=== PATIENT | male | born 2000 | race Caucasian/White ===

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

== ENCOUNTER → 2022-07-08 | Outpatient (CLI) | payer MEDICAID, SELFPAY ==
--- NOTE | 2022-07-08 15:37 | MRI_ITS ---
EXAM: MR RIGHT LOWER EXTREMITY WITHOUT INTRAVENOUS CONTRAST, KNEE CLINICAL INDICATION: history of patellar subluxations TECHNIQUE: Multiplanar and multisequence MR images of the right knee without intravenous contrast. This report was created using mobile melting [employer] report [employer] technology. COMPARISON: X-ray 06/08/2022. FINDINGS: BONES/JOINTS: Patellar marrow edema. Marrow signal is otherwise normal. No fracture or osteonecrosis. No synovial hypertrophy. No intra-articular body. EXTENSOR MECHANISM: Unremarkable. MEDIAL MENISCUS: Unremarkable. LATERAL MENISCUS: Unremarkable. MEDIAL CAPSULE/SUPPORTING STRUCTURES: Unremarkable. Intact. LATERAL CAPSULE/SUPPORTING STRUCTURES: Intact. ANTERIOR CRUCIATE LIGAMENT: Unremarkable. Intact. POSTERIOR CRUCIATE LIGAMENT: Unremarkable. Intact. MUSCLES: Unremarkable. CARTILAGE: Unremarkable. Intact. FLUID: Trace joint effusion. OTHER SOFT TISSUES: No popliteal cyst. MRI/Lower Ext Joint Only (Routine) IMPRESSION: 1. Patellar bone contusion consistent with history of subluxations. 2. Trace joint effusion. Electronically Signed: Kortney Brady MD at 17:45 EST Reading Location ID and State: [id number] / Tel , Service support ,
== END | disposition home or self-care (01) ==
LOC: MRI 15:34
PROVIDERS: PCP Pediatrics
DX: S83.011D Lateral subluxation of right patella, subsequent encounter (principal)
CPT/HCPCS: 73721

== ENCOUNTER 2022-08-03 07:43 | Day surgery (SDC) | payer MEDICAID, SELFPAY ==
[2022-08-03] VITALS (8 sets, daily range): BP systolic 113–136; BP diastolic 60–78; PULSE 60–80; RESP 15–18; TEMP 36.6–37.1; O2SAT 80–100; BMI 22.9
[2022-08-03] MEDS: Lactated Ringers 1,000 ML 15 ML IV (08:15)
--- NOTE | 2022-08-03 09:06 | HP.PCM_ITS ---
HPI - General HPI Narrative PAULINE BOWSER, is a 21 M who presents for right knee arthroscopy, medial patellar femoral ligament reconstruction with allograft tissue. Patient understands wishes to proceed. Right knee marked. Explained the surgery pros and cons risks and benefits as well as postoperative recovery. Patient wishes to go a head with femoral nerve block we will plan to put the patient on crutches partial weightbearing only with a hinged knee brace unlocked 0 to 90 degrees and follow-up in the office in 2 days postoperatively. Postop narcotic counseling performed as well on risks of that. He understands here with his mom wishes to proceed. No further questions or concerns. No changes to history and physical exam. MR#: [id number] Acct: [id number] Name:PAULINE GOLD Rep #: [id number] : 2000 ? ? Provider: Dr. Michael Rogers MD Age/Sex:? 21/M ? ? Location: [facility] [place].[facility] Status: Signed Intake Intake Visit Reasons:?RIGHT KNEE Chief Complaint: MRI review Is patient in pain?: Yes Allergies No Known Allergies Allergy (Verified 07/15/22 13:49) Medications NK? 06/08/22 [History Confirmed 07/15/22] PFSH Medical History? 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 History of wisdom tooth extraction Social History? Smoking Status:? Never smoker alcohol intake:? never what type of physical activity do you participate in:? other HPI RIGHT KNEE Details: Parts of this documentation were recorded by a scribe, this documentation accurately reflects the service provided and the decisions made by me, Dr. Michael Rogers MD 07/15/22 1267. PAULINE BOWSER is a 21 year old M here today for? right knee PF instability. Mmore than 3 subluxations. first time at 17 playing soccer. Always goes out laterally and then comes back in. Never got stuck or went out and never had to have a manual reduction, mostly soccer. Up to 15 times. Tried the brace, did PT twice, tape. KT tape . Still playing indoor soccer on a Monday. IN school and work in [place]. 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 Pain medially in the knee, flared up, worse with standing. No grinding. per Sylvia Fuller ?21 year old M here today evaluation of chronic right knee pain, referred by PCP for a history of right patellar subluxations. He states that he has pretty constant aching over the medial knee. On an average day his pain is a 4/10. However, sometimes it can be very sharp with certain movements and feel like his knee is going to give out. Last patellar subluxation he think was about 3 months ago playing soccer. He states his initial subluxation was in 01/2017. States they have always reduced spontaneously. His worst one was just under a year ago when he was playing soccer. Denies any other injuries to right knee or right lower extremity besides subluxations. Denies any prior surgeries to right lower extremity. He has done 2 round of PT one back in 2018 and most recently in August of 2021. He has continued with a HEP and continues to have pain with daily activities like walking to class and more intense things like playing soccer. He states he gets swelling off and on. He has iced, taped, used a J-brace and taken NSAIDs as needed with minimal relief. At this time he would like an MRI to further evaluate. Ortho Exam General General: Yes no acute distress Neurologic: Yes alert and Yes oriented x3 Psychologic: Yes reasonable and appropriate Right Knee Skin/Wound: No erythema, No ecchymosis and No swelling Contralateral Normal: Yes Knee ROM: Yes ROM-Flexion 0-140 Examination: No Med jt line tenderness, No Lat jt line tenderness, No TTP inf pole patella, No Crepitus, No Pain with flexion, No Pain with extention, No James's Test, No TTP Patellar tendon, No TTP Tibial tubercle, No TTP Pes Anserine and No Illiotibial band tenderness Stability: NML: Anterior Drawer, NML: Sheba, NML: Posterior Drawer, NML: Valgus 0, NML: Valgus 30 and NML: Varus 0 Popliteal Adenopathy: No Patella Translation: 3 Apprehension with Lateral Translation: Yes Patellar Tilt Normal: Yes Patella Grind: No KNEE: ?mild TTP MPFL. mild Apprehension with lateral translation. mild pos j sign. lateral translation 3, 2 medial. no crepitus. normal gait, normal alignment, Able to plantarflex and dorsiflex. Soft compartments. Left Knee Patella Translation: 3 Supplemental Info MR#:? [id number] Acct: [id number] Name:? PAULINE BOWSER Rep #: [id number] :?? 2000 M 21 ? From:? ? Rhys Smith MD PCP: Dr. Aldo Weathers MD ? Status: DEP AMB Study: Knee 4 or More Views ? Date of Exam: 06/08/22 Exam# [id number] ? Ordering Dr:? Sylvia Jules STUDY: ? X-RAY - RIGHT KNEE REASON FOR EXAM: ? Male, 21 years old.? Pain. TECHNIQUE: ? 4 view(s) of the knee. COMPARISON: ? None. FINDINGS: Normal visualized distal femur.? Normal visualized proximal tibia and fibula.? Normal proximal tibiofibular articulation. Normal medial femorotibial compartment.? Normal lateral femorotibial compartment.? Normal patellofemoral articulation. The soft tissue structures are unremarkable. RAD/Knee 4 or More Views IMPRESSION: Normal x-ray examination of the knee. ? Electronically Signed: Rhys Smith MD at 15:47 EST , ? MR#:? [id number] Acct: [id number] Name:? PAULINE BOWSER Rep #: [id number] :?? 2000 M 21 ? From:? ? Kortney Brady MD PCP: Dr. Aldo Weathers MD ? Status: REG CLI Study: Lower Ext Joint Only (Routine) ? Date of Exam: 07/08/22 Exam# [id number] ? Ordering Dr:? Sylvia Jules EXAM:? MR RIGHT LOWER EXTREMITY WITHOUT INTRAVENOUS CONTRAST, KNEE CLINICAL INDICATION:? history of patellar subluxations TECHNIQUE:? Multiplanar and multisequence MR images of the right knee without intravenous contrast.? This report was created using [employer] report generation technology. COMPARISON:? X-ray 06/08/2022. FINDINGS: BONES/JOINTS:? Patellar marrow edema.? Marrow signal is otherwise normal. No fracture or osteonecrosis.? No synovial hypertrophy.? No intra-articular body. EXTENSOR MECHANISM:? Unremarkable. MEDIAL MENISCUS:? Unremarkable. LATERAL MENISCUS:? Unremarkable. MEDIAL CAPSULE/SUPPORTING STRUCTURES:? Unremarkable.? Intact. LATERAL CAPSULE/SUPPORTING STRUCTURES: Intact. ANTERIOR CRUCIATE LIGAMENT:? Unremarkable.? Intact. POSTERIOR CRUCIATE LIGAMENT:? Unremarkable.? Intact. MUSCLES:? Unremarkable. CARTILAGE:? Unremarkable.? Intact. FLUID:? Trace joint effusion. OTHER SOFT TISSUES: ? No popliteal cyst. MRI/Lower Ext Joint Only (Routine) IMPRESSION: ? 1.? Patellar bone contusion consistent with history of subluxations. ? 2.? Trace joint effusion. ? Electronically Signed: Kortney Brady MD at 17:45 EST Reading Location ID and State: [id number] / Tel , Service support? , agree with xr and MRI. insall salvati 1 no damaso / baja. TT TG about 11mm. Coding Level of Care Code Off vis,est,level 4 Diagnoses Instability of right patellofemoral joint? M25.361 Assessment and Plan Assessment and Plan (1) Instability of right patellofemoral joint: ?Status:?Acute ?Plan: 21-year-old male with patellofemoral instability on the right knee.? Normal alignment.? No patella alto or [place].? No obvious cartilage lesions or other secondary problems.? Normal alignment and normal TT-TG ratio.? He has tried extensive conservative management.? Surgery for this would involve reconstruction of the MPFL.? We went over the pros and cons risks and benefits as well as recovery associated with this as well as I perform this with allograft tissue.? He understands wishes to proceed and signed consent for surgery.? Booked the procedure for right knee arthroscopy, reconstruction medial patellofemoral ligament with allograft Pros and cons risks and benefits were discussed with the patient including but not limited to infection, pain, stiffness, bleeding, damage to surrounding structures, neurovascular injury, recurrence or retear, failure or wear of hardware or fixation, instability, fracture, deep vein thrombosis and pulmonary embolism, anesthetic risks, , patient dissatisfaction, anterior knee pain, graft rupture, hardware failure or irritation, osteoarthritis, need for further surgery and other risks.? Patient understood and wished to proceed with surgery, and signed the informed consent documentation. [facility] Medical History (Updated 07/27/22 @ 13:45 by Gena Cintron) Allergic dermatitis History of edema History of pain when walking Instability of right patellofemoral joint Non-smoker Wears contact lenses Home Medications NK 06/08/22 [History Last Taken Unknown] Allergy/AdvReac Type Severity Reaction Status Date / Time No Known Allergies Allergy Verified 08/03/22 08:14 Surgical History History of wisdom tooth extraction Social History Smoking Status: Never smoker alcohol intake: never what type of physical activity do you participate in: other Vital Signs Vital Signs Vital Signs: 08/03/22 08:15 08/03/22 08:15 Temperature 98 F Temperature Source Temporal Pulse Rate 72 Respiratory Rate 18 Respiratory Pattern Normal Blood Pressure 113/68 Blood Pressure Mean 83 Blood Pressure Source Monitor Blood Pressure Position Semi-Fowlers Blood Pressure Location Right Arm Pulse Ox 100 Oxygen Delivery Method Room Air Weight Weight: 160 lb Body Mass Index (BMI) 22.9
[2022-08-03] MEDS: Cefazolin 2 GM in 0.9% Normal Saline 100 ML IV (09:24)
--- NOTE | 2022-08-03 09:40 | RAD_ITS ---
STUDY: X-RAY - RIGHT KNEE REASON FOR EXAM: Male, 21 years old. Right knee arthroscopy. TECHNIQUE: 2 view(s) of the knee. COMPARISON: None. FINDINGS: Intraoperative imaging provided for medial patellofemoral ligament allograft. RAD/Knee 1 or 2 Views IMPRESSION: Intraoperative imaging provided for medial patellofemoral ligament allograft. Electronically Signed: Rhys Smith MD at 12:00 EDT ,
[2022-08-03] MEDS: Epinephrine (1 mg/ml) 1 MG/ML VIAL (10:39)
--- NOTE | 2022-08-03 11:23 | OP.PCM_ITS ---
Problems Associated Problem List Diagnoses (1) Instability of right patellofemoral joint: Report of Operation Date of Procedure: 08/03/22 Pre-Operative Diagnosis: Right knee patellofemoral instability Post-Operative Diagnosis: Same Surgery/Procedure Performed:: Right knee arthroscopy, debridement, reconstruction medial patellofemoral ligament with allograft tissue Surgeon: Michael Rogers Type of Anesthesia: Block,Regional and General Anesthesiologist: Dorian Rogers Estimated Blood Loss (mL): 30 Description of Procedure: Patient brought the operating room theater.? Placed supine on the operating room table.? General anesthesia induced 2 g IV Ancef given prior to the start of the procedure.? Stress positioner to the patient's right side.? Tourniquet applied to the thigh appropriately padded.? All bony prominences padded.? SCD on the nonoperative leg.? Bump under the hip. Lower extremity prepped and draped in the chlorhexidine-based prep solution allowing over 3 minutes drying time prior to draping.? Preoperative timeout performed to confirm the site patient and the surgery. Leg elevated and tourniquet inflated to 250 mmHg.? Began by making standard anterolateral and anteromedial arthroscopy portals.? Examined the full intra- articular extent of the knee.? Mild fraying far medial corner of patella, no full thickness cartilage defect, debrided to stable margins. Otherwise the trochlea appeared normal and the cartilage on the m/l compartments also appeared normal.? Gutters were entered no loose bodies.? Medial and lateral meniscus was normal as was the ACL.? Ligamentum mucosum debrided and removed.? Arthroscopy portion of the case terminated pictures taken and saved to the system. With the knee in 30 degrees of flexion and made longitudinally based incision over the superomedial aspect of patella.? Dissection down through skin and subcutaneous tissue to meticulous hemostasis I incised on the medial retinaculum identified the medial border of the patella at the superior and inferior aspect of that.? I placed the superior guide guidewire in the superior one third of the patella.? The distal anchor drill pin I placed parrallel distal to this at the middle of the patella.? I overdrilled these with the Arthrex 3.5 mm reamer.? I reamed to a depth of approximately 20 mm, to the laser line.? Then chose a gracilis graft approximately 24 cm in length 4 mm in diameter.? I whipstitched each stand using fiber tape Arthrex for a length of about 1 inch on either end.? I then passed the superior sutures through the eyelet of the anchor, mallet this into place at the superior drill hole and secured it.? This had good purchase in the bone.? I then slightly lengthen the button loop construct of the tight rope implant and passed the graft through that.? I then inserted the distal most anchor in the same fashion to create a U construct. Next I turned my attention to the distal femur.? I used the included guide to identify schottles point. 1 mm anterior to the posterior cortex extension line, 2.5 mm distal to the posterior articular border of the medial femoral condyle, and proximal to the level of the posterior point of Blumensaat?s line. Raymond the 'saddle' between ME and AT. ? Passive spade tipped drill bit at this point aiming slightly proximal and anterior.? The length of the tunnel was 8 cm.? I penetrated the lateral cortex out through the skin.? I then tunneled the graft underneath the vastus medialis muscle.?Between layers 2 and 3. I then used shuttling techniques to passed the button onto the far cortex of the femur flipped the button and deliver the tendon into the tunnel.? This achieved good fill of the tunnel.? Graft was tensioned at 30 degrees the patellofemoral joint not over constrained with normal tension on the graft.?Tighter in extension than flexion, full ROM of the knee, patella seated in trochlea. I took intraoperative fluoroscopy throughout to identify each point and saved the final pictures onto the system. Wound thoroughly irrigated with normal saline.? I closed the medial patellar retinaculum with the fiber tape sutures from the anchors and cut the suture short.?All sutures cut short. Subcutaneous tissue closed with 2-0 Vicryl sutures and Skin with 3-0 Monocryl.? Wound cleaned with wet and dry dressing followed by Steri-Strips Adaptic 4 x 4 gauze abdominal pad dressings and sterilely 6 inch Ad bandage with a hinged knee brace placed on the patient in full extension.? Patient woken up from the general anesthetic transferred off the operating room table taken to postanesthetic care unit in stable condition.? All sponge needle instrument counts were correct no complications.? Plan for the patient partial weightbearing on crutches for the first 2 weeks brace unlocked 0 to 90 degrees week 0-6. Grafts/Implants Used: arthex 3.5mm biocomposite swivelock anchors x2 and ACL button for femur Complications none Admit VTE Documentation VTE Present on Admission: No VTE Mechan Device Prophylaxis: SCD's Reason prophylaxis not ordered:: Treatment Not Indicated Procedures Musculoskeletal 20xxx-29xxx: Other Procedure See Report
--- NOTE | 2022-08-03 11:30 | DCINST_ITS ---
Discharge Instructions Diet Discharge Diet: No restrictions Activity Discharge Activity: Use Crutches Ice area for (Minutes): 10 Weight Bearing Status: Toe touch weight bearing Dressing / Incision Call your doctor if your incision/area has: Continuous Slow Oozing, Sudden Increased Bleeding, Increased Pain/ Swelling, Increased Redness, Foul Smelling Discharge and Swelling at the incision site Change Dressing in: leave in place till F/U Follow Up Care Please Follow Up With: Michael Rogers MD When: 2 days Test Results: Test results from this visit will be discussed in further detail at your follow- up appointment, if applicable. Discharge Plan Admission Attending Provider: Michael Rogers Primary Care Provider: Aldo Weathers Discharge Orders/Prescriptions Prescriptions: New oxycodone-acetaminophen [Percocet] 5-325 mg tablet 1 tab PO Q6H MDD 6 PRN (Reason: pain) 5 Days Qty: 20 0RF Referrals / Follow Up: Aldo Weathers MD [Primary Care Provider] - Michael Rogers MD [Med Staff - Active Staff] - Disposition Disposition (needs filled in before D/C Order can be placed): Home, Self Care
== END 2022-08-03 13:09 | disposition home or self-care (01) ==
LOC: SDC 07:43 → AC 07:44
PROVIDERS: PCP Pediatrics; Referring Provider Orthopaedic Surgery Sports Medicine; Visit Provider Orthopaedic Surgery Sports Medicine
PROC: (CPT 27427; principal; 2022-08-03 08:50)
DX: M25.361 Other instability, right knee (principal); X58.XXXA Exposure to other specified factors, initial encounter
CPT/HCPCS: 27422; 01400; 73560; 76000; C1713; J7120; J2405

== ENCOUNTER 2022-11-24 16:00 | Outpatient (RCR) | payer MEDICAID, SELFPAY ==
--- NOTE | 2022-08-22 14:23 | HP.PTEVAL_ITS ---
Patient's Visit Information PAULINE BOWSER is a 21 year old M referred to Physical Therapy by Dr. Michael Rogers MD with a diagnosis of OTHER INSTABILITY ,RIGHT KNEE MPFL RECONSTRUCTION. Date of Evaluation: 08/22/22 Physical Therapist: Az Landin, PT, Cert MDT, OCS - Visit Plan Frequency: 2x /Week Duration: 12weeks Plan: s/p right knee arthroscopy ,debridement ,reconstruction MPFL with allograft 08/03/22. KNEE BRACE ON WITH GAIT. 0-90 Degrees for 6weeks then progress as tolerated. SEE PROTOCAL FOR MPFL RECONSTRUCTION. PT INTERVETIONS SEE PROTOCAL FOR PROGRESSION ,ROM 0-90 DEGREES FOR 6WEEKS ,PROGRESS TO GRADUAL STRENGTHNEING QUADS/HAMSTRINGS HIP ,PROPRIOCEPTION ,NMES TO IMPROVE QUAD ,VASO AND CP - Subjective This 21 y/o male presents to physical therapy with S/P right knee arthroscopy ,debridement reconstruction MPFL with allograft on 08/03/22 at [facility] done by DR Rogers. Patient was PWB RLE for weeks with brace looked using crutches . Patient seen 08/05 then RTD 08/19 and start PT wean crutches use as tolerated and unlock brace 0-6 weeks 90 degrees then gradually increase with ROM as tolerated after 6weeks. Patient subluxation patella in HS sophomore and ~ 20 times over years subluxation including college thus pain persisted and edema ache thus underwent. Seen DR had MRI MPL injury. Patient post surgery had pain post thus ice and had Percocet. Patient nerve block . Patient conts to have edema and pain. Patient pain affects sleep ache. Patient is walking with brace unlocked 0-90 degrees. Patient has some paresthesia. Patient ahs limitaions with functional activities and ADLS and unable to RTS. Patient plans to college at [employer]. SOCIAL: College student. VOCATION: [employer]. - Pain Right Knee Pain Intensity (Out of 10): 4 Pain Intensity Range: 10 - Objective POSTURE: WFL. GAIT: ambulates with brace on with slight decrease stance time. SKIN: incision well approximate. EDEMA: joint line 38 cm. QUADS SET: poor. OBSERVATION: Atrophied quad. AROM: supine knee flexion 0-90 degrees. MMT: hip 3+/5 ,quads/hams NT. FLEXABLITY: hamstrings mild tight - Balance/Special Test Scores Lower Extremity Functional Score: 22 - Goals Goal 1:: Patient to be I with Protocol for MPFL . Goal Time Frame: 8-12 Weeks Goal 2:: Patient to demonstrate 75% improvement with function and activity Goal Time Frame: 8-12 Weeks Goal 3:: Patient improve AROM knee flexion 0-135 degrees to improve gait and stairs Goal Time Frame: 8-12 Weeks Goal 4:: Patient improve peak force quads/hams by 20-30 to improve gait Goal Time Frame: 8-12 Weeks Goal 5:: Patient to normalize gait with good proprioception to good Goal Time Frame: 8-12 Weeks Goal 6:: Patient to improve LFES score by 15-20 points to improve QOL and function Goal Time Frame: 6-8 Weeks - Rehabilitation Potential Physical Therapy Diagnosis: This patient underwent s/p right knee arthroscopy ,debridement ,reconstruction MPFL with allograft 08/03/22 with some pain ,decrease ROM ,weakness quads/hams ,atrophy ,decrease ROM impairs walking and function thus benefit from skilled PT Rehabilitation Potential: Good - Anticipated Interventions Patient/Client Instruction: Educate patient on: Condition, Plan of Care For the Purpose of:: To decrease pain, To increase ROM, To improve muscle performance and motor function, To increase tolerance to activity/condition/position, To improve performance and independence with ADL's, To improve ability of physical actions for home/community/work/leisure, To improve gait and locomotor functions, To improve health of tissue, To decrease soft tissue restriction, To increase flexibility/ROM, To improve endurance, To improve balance Therapeutic Exercise to Include: Strength training, Endurance training, Balance training, Agility training, Gait and locomotor training, Passive ROM, Active ROM Comment: SEE PROTOCAL FOR PROGRESSION For the Purpose of:: To decrease pain, To increase ROM, To improve muscle performance and motor function, To increase tolerance to activity/condition/position, To improve ability of physical actions for home/community/work/leisure, To improve gait and locomotor functions, To improve health of tissue, To decrease soft tissue restriction, To increase flexibility/ROM, To improve endurance, To improve balance Functional electric stimulation: Yes Cryotherapy (ice pack, ice massage): Yes Vasopneumatic device: Yes For the Purpose of:: To decrease pain, To increase ROM, To improve muscle performance and motor function, To increase tolerance to activity/condition/position, To improve ability of physical actions for home/community/work/leisure, To improve health of tissue, To decrease soft tissue restriction, To increase flexibility/ROM, To improve endurance, To improve balance Thank you for the opportunity to evaluate your patient. For Medicare and Medicare HMO plans, please review the plan of care and approve it. It will need to be FAXED BACK to us at [phone] for Medicare purposes. For Medicare only, by signing this I certify the plan of care. Please let me know if there are questions or concerns regarding this plan of care. Physician Signature: Date:
== END 2022-11-24 19:00 | disposition home or self-care (01) ==
LOC: PT 16:00
PROVIDERS: PCP Pediatrics; Referring Provider Orthopaedic Surgery Sports Medicine; Visit Provider Orthopaedic Surgery Sports Medicine
DX: M25.361 Other instability, right knee (principal)
CPT/HCPCS: 97110; 97162; 97530

== ENCOUNTER 2023-06-11 15:16 | Emergency (ER) | payer MEDICAID, SELFPAY ==
[2023-06-11 15:18] VITALS: BP 132/68; PULSE 89; RESP 22; TEMP 36.4; O2SAT 100; BMI 23.4
--- NOTE | 2023-06-11 15:32 | CT_ITS ---
STUDY: CT ABDOMEN AND PELVIS WITHOUT CONTRAST REASON FOR EXAM: Male, 22 years old. Pain RADIATION DOSAGE (If Supplied By Facility): CTDIvol = ( 7.08 ) mGy, DLP = ( 397.19 ) mGycm TECHNIQUE: Transaxial images were obtained from the dome of the diaphragm to the symphysis pubis without oral contrast, and without intravenous contrast. Sagittal and coronal images were reconstructed. Individualized dose optimization techniques were used for this CT. COMPARISON: None. FINDINGS: The visualized lung bases are unremarkable. The visualized portions of the heart are within normal limits. Normal liver. Normal gallbladder and extrahepatic biliary system. Normal spleen. Normal pancreas. Normal bilateral adrenal glands. Mild right hydronephrosis and hydroureter. No radiodense ureterolithiasis noted. Normal left kidney. Normal visualized stomach. Normal small intestine. Normal colon. Appendix not identified. Normal abdominal aorta. Normal inferior vena cava. Normal retroperitoneum. Bladder decompressed. Normal abdominal wall. Normal osseous structures. CT/Abdomen/Pelvis without Cont IMPRESSION: Mild right hydronephrosis and hydroureter. No radiodense ureterolithiasis. Electronically Signed: Guanako Brink MD at 16:49 EST ,
--- NOTE | 2023-06-11 15:32 | US_ITS ---
STUDY: SCROTUM ULTRASOUND REASON FOR EXAM: Male, 22 years old. right testicular pain TECHNIQUE: Ultrasound evaluation of the scrotum was performed with color Doppler and static hernández-scale imaging. COMPARISON: None. FINDINGS: RIGHT TESTICLE INTRATESTICULAR: There is a normal size of the right testicle. The right testicle measures 4 x 2.4 x 1.9 cm. There is a homogenous echotexture. There is normal arterial and normal venous vascularity. There is no demonstrated right testicular mass or cyst. EXTRATESTICULAR: The epididymis is normal in size. The epididymis head measures 1 x 1 x 1.3 cm. There is normal vascularity of the epididymis. There is no demonstrated epididymal cystic structure. There is no demonstrated hydrocele. There is no demonstrated varicocele. There is no demonstrated extratesticular mass or cyst. LEFT TESTICLE INTRATESTICULAR: There is a normal size of the left testicle. The left testicle measures 3.8 x 2.4 x 1.9 cm. There is a homogenous echotexture. There is normal arterial and normal venous vascularity. There is no demonstrated left testicular mass or cyst. EXTRATESTICULAR: The epididymis is normal in size. The epididymis head measures 0.9 x 1.5 x 1.0 cm. There is normal vascularity of the epididymis. There is no demonstrated epididymal cystic structure. There is no demonstrated hydrocele. There is no demonstrated varicocele. 8 x 8 x 6 mm epididymal cyst. US/Testicular with Arterial Flow IMPRESSION: Normal bilateral testicles. Electronically Signed: Guanako Brink MD at 17:22 EST ,
--- NOTE | 2023-06-11 15:34 | EDS_ITS ---
HPI History of Present Illness Chief Complaint: Male Pain/Injury Informant: patient Narrative Narrative: Patient states that about 2:00 this afternoon he started to get pain in his right testicle. But it then radiated to his right flank and right back area. He is nauseated when the pain is bad. He states he was pacing at home and in the waiting room. No injury to the area. No problems urinating. No discharge. No history of testicular or abdominal surgeries. Nothing really makes it better or worse. No history of kidney stones in him or the family. [facility] Medical History Allergic dermatitis History of edema History of pain when walking Instability of right patellofemoral joint Non-smoker Wears contact lenses Home Medications acetaminophen 500 mg tablet (Tylenol Extra Strength) 500 mg PO Q6H PRN 08/19/22 [History Last Taken Unknown] ibuprofen 600 mg tablet 600 mg PO Q8H PRN 08/19/22 [History Last Taken Unknown] hydrocodone-acetaminophen 5-325mg 5mg-325mg 1 tab PO Q6H PRN PRN Pain 3 days #10 TABLETS 06/11/23 [Rx Last Taken Unknown] ondansetron 4 mg disintegrating tablet 4 mg PO Q8H PRN PRN Nausea #10 tabs 06/11/23 [Rx Last Taken Unknown] Allergy/AdvReac Type Severity Reaction Status Date / Time No Known Allergies Allergy Verified 06/11/23 15:18 Surgical History History of wisdom tooth extraction Social History Smoking Status: Former smoker alcohol intake: never what type of physical activity do you participate in: other ROS ROS ED ROS Narrative A complete review of systems was performed and is negative except as documented in the history of present illness. Some specific details below. Constitutional: No recent fevers or chills. He states before this starting at 2 he was just fine. He was not moving when it started. EYE: No visual complaints or pain. ENT: No difficulty swallowing. No swelling. No pain. CV: No chest pain or palpitations. Respiratory: No dyspnea. No hemoptysis. No difficulty taking breaths. GI: Please see history of present illness. Nausea. Some pain toward the right lower quadrant and right flank but most is in the back in the inguinal area. : No frequency dysuria or hematuria. See history of present illness also. Musculoskeletal: No recent trauma. No pains. No radicular pain. Skin: No rash. Nondiaphoretic. Neuro: No weakness or numbness. Endocrine: No polyuria or polydipsia. EXAM Physical Exam Narrative Exam Narrative: CONSTITUTIONAL: Patient is nontoxic in appearance. The patient looks a bit uncomfortable in bed HEENT: No notable trauma. Mucous membranes moist. EYES: No conjunctival injection. No pallor. CARDIOVASCULAR: Regular rate. Regular rhythm. No notable murmur. No JVD. RESPIRATORY: No respiratory distress. Breathing is unlabored. No wheezes. Saturations are normal at 100% on room air showing no hypoxia. GASTROINTESTINAL: Not distended. Bowel sounds are normal. No tenderness. No guarding. No rebound. No palpable mass. No bruit. Overall his abdomen is actually quite benign. GENITOURINARY: No tenderness over the bladder. Right testicle seems similar to the left in size shape and position. Cremasteric reflexes intact. His right testicle is really not notably tender. He states it hurts in that area but pressing on it does not hurt. No sign of hernia at all including with straining and coughing. There is no rash. He has some very mild right CVA tenderness. MUSCULOSKELETAL: Atraumatic. No peripheral edema. No cord. No tenderness along the deep venous system. No asymmetry. NEUROLOGICAL: Patient is alert and appropriate. No focal deficit noted. SKIN: No noted rashes including in the area of pain. No diaphoresis. PSYCHIATRIC: Patient is calm. Mood is appropriate. Const Vital Signs: 06/11/23 15:18 Temperature 97.6 F L Temperature Source Temporal Pulse Rate 89 Respiratory Rate 22 H Blood Pressure 132/68 H Blood Pressure Mean 89 Pulse Ox 100 Oxygen Delivery Method Room Air MDM MDM MDM Narrative Medical decision making narrative: Patient looks a little bit uncomfortable. He tends to move slightly in bed. With his significant pain in the right flank area my suspicion is strongest that this is likely kidney stone. But with his young age we will also call regarding ultrasound of the testicle to evaluate for possible torsion although I feel this is less likely. We are pending CTs, ultrasound as well as urine and blood work at this time. My independent or potation the patient's CT scan of the abdomen does show hydronephrosis on the right. But I do not see a definitive stone. No other acute abnormalities noted. Final reading is actually similar. Final reading of ultrasound the testicles is normal. Patient's CBC is normal. Patient's electrolytes are normal other than minimally low potassium that should self-correct with diet. Urine shows a large number of red cells but no sign of infection. Patient's recheck. He did receive 2 doses of pain meds. But he is wide-awake alert getting water eating ice and essentially asymptomatic. I am wondering if he had a stone that may have actually passed. His history and exam are most consistent with stone and not torsion. Ultrasound shows no indication of torsion. His CT and his urinalysis all point to a kidney stone except that the stone is not physically seen on the scan. This may be a radiolucent stone or it may have already passed. We did discuss reasons to return. Lab Data Labs: Laboratory Results - last 24 hr 06/11/23 06/11/23 15:39 17:18 WBC 6.5 RBC 4.81 Hgb 14.2 Hct 41.2 MCV 85.7 MCH 29.5 MCHC 34.5 RDW Std Deviation 36.8 RDW Coeff of [place] 11.9 Plt Count 207 MPV 10.3 Immature Gran % (Auto) 0.500 Neut % (Auto) 52.3 Lymph % (Auto) 37.5 [place] % (Auto) 9.0 Eos % (Auto) 0.2 Baso % (Auto) 0.5 Absolute Neuts (auto) 3.4 Absolute Lymphs (auto) 2.42 Nucleated RBC % 0 Sodium 141 Potassium 3.0 L Chloride 107 Carbon Dioxide 25.0 Anion Gap 9 BUN 15 Creatinine 1.15 Estim Creat Clear Calc 104.92 Est GFR (MDRD) Af Amer 103 Est GFR (MDRD) Non-Af 85 BUN/Creatinine Ratio 13.0 Glucose 112 H Calcium 9.6 Urine Color Yellow Urine Clarity Clear Urine pH 7.0 Ur Specific [place] 1.010 Urine Protein 30 H Urine Glucose (UA) Normal Urine Ketones 150 A* Urine Occult Blood 250 H Urine Nitrite Negative Urine Bilirubin Negative Urine Urobilinogen Normal Ur Leukocyte Esterase 25 H Urine RBC 50-100 SEEN Urine WBC 0-5 SEEN Ur Squamous Epith Cells 0 SEEN Urine Bacteria RARE Urine Mucus 0 SEEN Radiography Diagnostic Testing: Clinical Impression(s) from Imaging Studies Abdomen/Pelvis CT 06/11/23 15:32 IMPRESSION: Mild right hydronephrosis and hydroureter. No radiodense ureterolithiasis. Electronically Signed: Guanako Brink MD at 16:49 EST Reading Location ID and State: [facility] / [place] Tel , Service support , Testicular Ultrasound 06/11/23 15:32 IMPRESSION: Normal bilateral testicles. Electronically Signed: Guanako Brink MD at 17:22 EST , Discharge Plan Triage Chief Complaint: Male Pain/Injury ED Provider: Karel Ingram Dx/Rx/DC Orders Clinical Impression: Acute right flank pain, Hematuria, Hydronephrosis of right kidney Instructions: ED Flank Pain, Uncertain Cause Prescriptions: New hydrocodone-acetaminophen [hydrocodone-acetaminophen] 5-325 mg tablet 1 tab PO Q6H PRN PRN (Reason: Pain) 3 Days Qty: 10 0RF ondansetron [ondansetron] 4 mg tablet,disintegrating 4 mg PO Q8H PRN PRN (Reason: Nausea) Qty: 10 0RF No Action acetaminophen [Tylenol Extra Strength] 500 mg tablet 500 mg PO Q6H PRN ibuprofen 600 mg tablet 600 mg PO Q8H PRN Primary Care Provider: Aldo Weathers Referrals: Darek Roberts MD [Med Staff - Active Staff] - 3-5 Days Aldo Weathers MD [Primary Care Provider] - 3-5 Days if not improving Disposition Disposition: Home, Self Care
--- OUTSIDE RECORDS SUMMARY | 2023-06-11 15:38 | XMS RPT_ITS | CCD ---
Author Name Unknown Address [address] [place] [address] Organization [facility] Care Team Providers Care Deck Steward Name Role Phone ALEX JONES Attending Unavailable ALEX JONES Consulting Unavailable ALEX JONES Admitting Unavailable Alex Jones MD Primary Care Provider ALEX JONES Attending Unavailable ALEX JONES Primary Care Unavailable ALEX JONES Referring Unavailable ALEX JONES Primary Care Unavailable LIANET MASCORRO Attending Unavailable ALEX JONES Primary Care Unavailable Problems Active Problems Problem Classification Problem Date Documented Da te Episodic/Chronic Other non-traumatic joint disorders (1 source) Pain in right knee; Translations: [Pain in joint, lower leg] Episodic Past or Other Problems Problem Classification Problem Date Documented Da te Episodic/Chronic Joint disorders and dislocations; trauma-related (4 sources) Unspecified subluxation of right patella, subsequent encounter; Translations: [Subluxation of joint of lower limb] Onset: 06-29-2021 Episodic Other connective tissue disease (1 source) Pain in left foot; Translations: [Pain of left heel] Onset: 06-29-2021 Episodic Results Test Name Value Interpretation Reference Range Facil ity Vital Signs Date Time Vital Sign Value Performing Clinician Faci raf 06-03-2022 08:13-0500 Body temperature 97.5 [degF] Lianet Mascorro MD Work Phone: [facility] 06-03-2022 08:13-0500 Body weight 71.84 kg Lianet Mascorro MD Work Phone: [facility] 06-03-2022 08:13-0500 Diastolic blood pressure 62 mm[Hg] Lianet Mascorro MD Work Phone: [facility] 06-03-2022 08:13-0500 Heart rate 70 /min Lianet Mascorro MD Work Phone: [facility] 06-03-2022 08:13-0500 Respiratory rate 14 /min Lianet Mascorro MD Work Phone: [facility] 06-03-2022 08:13-0500 Systolic blood pressure 120 mm[Hg] Lianet Mascorro MD Work Phone: [facility] Encounters Encounter Date Encounter Type Care Provider Facility Start: 06-14-2022 ambulatory Pcp (Historical) Appoin [facility] Start: 06-03-2022 End: 06-03-2022 ambulatory LIANET MASCORRO Facility:[facility] Start: 06-03-2022 End: 06-03-2022 Patient encounter procedure Lianet Mascorro MD Work Phone: [facility] Plan of Treatment Date Care Activity Detail Author Start: 02-03-2025 Urine microalbumin profile DTA P,TDAP,TD (7 - Td or Tdap) [facility] Start: 05-15-2022 DEPRESSION ASSESSMENT DEPRESSION ASS ESSMENT [facility] Start: 06-24-2021 COVID-19 VACCINE (3 - Booster for Moderna series) COVID-19 VACCINE (3 - Booster for Moderna series) [facility] Start: 11-21-2019 HEPATITIS C SCREENING HEPATITIS C SC STEPHAN [facility] Start: 11-21-2019 HIV SCREENING HIV SCREENING [facility] Start: 11-21-2015 PEDS TO ADULT TRANSI TION ANNUAL ASSESSMENT PEDS TO ADULT TRANSITION ANNUAL ASSESSMENT [facility] Start: 2013 PEDS TO ADULT TRANSI TION INITIAL DISCUSSION PEDS TO ADULT TRANSITION INITIAL DISCUSSION [facility] Start: 11-21-2011 MENINGOCOCCAL B: Con plumber's assistant based on risk (1 of 2 - Risk Bexsero 2-dose series) MENINGOCOCCAL B: Consider based on risk (1 of 2 - Risk Bexsero 2-dose series) [facility] Immunizations Immunization Date Immunization Notes Care Provider Fa cilimitchell 04-16-2019 influenza, injectabl e, quadrivalent, preservative free Lianet Mascorro MD Work Phone: [facility] Work Phone: 03-27-2018 meningococcal polysaccharide (groups A, C, Y and W-135) diphtheria toxoid conjugate vaccine (MCV4P) Lianet Mascorro MD Work Phone: [facility] Work Phone: 03-13-2018 influenza, injectabl e, quadrivalent, contains preservative Lianet Mascorro MD Work Phone: [facility] Work Phone: 03-27-2017 Human Papillomavirus 9-valent vaccine Lianet Mascorro MD Work Phone: [facility] 03-27-2017 influenza, injectabl e, quadrivalent, contains preservative Lianet Mascorro MD Work Phone: [facility] 03-23-2016 Human Papillomavirus 9-valent vaccine Lianet Mascorro MD Work Phone: [facility] 03-02-2016 influenza, injectabl e, quadrivalent, contains preservative Lianet Mascorro MD Work Phone: [facility] 02-03-2015 human papilloma viru s vaccine, quadrivalent Lianet Mascorro MD Work Phone: [facility] 02-03-2015 meningococcal polysaccharide (groups A, C, Y and W-135) diphtheria toxoid conjugate vaccine (MCV4P) Lianet Mascorro MD Work Phone: [facility] 02-03-2015 tetanus toxoid, redu prudence diphtheria toxoid, and acellular pertussis vaccine, adsorbed Lianet Mascorro MD Work Phone: [facility] 03-30-2013 influenza virus vacc ine, live, attenuated, for intranasal use Lianet Mascorro MD Work Phone: [facility] 03-17-2009 novel influenza-H1N1 -09, all formulations Lianet Mascorro MD Work Phone: [facility] Work Phone: 02-04-2008 diphtheria, tetanus toxoids and acellular pertussis vaccine Lianet Mascorro MD Work Phone: [facility] Work Phone: 02-04-2008 measles, mumps and rubella virus vaccine Lianet Mascorro MD Work Phone: [facility] Work Phone: 02-04-2008 poliovirus vaccine, inactivated Lianet Mascorro MD Work Phone: [facility] Work Phone: 02-04-2008 varicella virus vaccine Lianet Mascorro MD Work Phone: [facility] Work Phone: 03-14-2007 influenza virus vacc ine, live, attenuated, for intranasal use Lianet Mascorro MD Work Phone: [facility] Work Phone: 05-03-2005 influenza virus vacc ine, unspecified formulation Lianet Mascorro MD Work Phone: [facility] Work Phone: 05-23-2003 varicella virus vaccine Lianet Mascorro MD Work Phone: [facility] Work Phone: 02-20-2003 diphtheria, tetanus toxoids and acellular pertussis vaccine Lianet Mascorro MD Work Phone: [facility] Work Phone: 02-20-2003 haemophilus influenz ae type b vaccine, HbOC conjugate Lianet Mascorro MD Work Phone: [facility] Work Phone: 02-20-2003 pneumococcal conjuga te vaccine, 7 valent Lianet Mascorro MD Work Phone: [facility] Work Phone: 11-21-2002 measles, mumps and rubella virus vaccine Lianet Mascorro MD Work Phone: [facility] Work Phone: 11-21-2002 pneumococcal conjuga te vaccine, 7 valent Lianet Mascorro MD Work Phone: [facility] Work Phone: 09-04-2002 hepatitis B vaccine, pediatric or pediatric/adolescent dosage Lianet Mascorro MD Work Phone: [facility] Work Phone: 09-04-2002 poliovirus vaccine, inactivated Lianet Mascorro MD Work Phone: [facility] Work Phone: 06-07-2002 diphtheria, tetanus toxoids and acellular pertussis vaccine Lianet Mascorro MD Work Phone: [facility] Work Phone: 06-07-2002 haemophilus influenz ae type b vaccine, HbOC conjugate Lianet Mascorro MD Work Phone: [facility] Work Phone: 06-07-2002 hepatitis B vaccine, pediatric or pediatric/adolescent dosage Lianet Mascorro MD Work Phone: [facility] Work Phone: 06-07-2002 pneumococcal conjuga te vaccine, 7 valent Lianet Mascorro MD Work Phone: [facility] Work Phone: 03-27-2002 diphtheria, tetanus toxoids and acellular pertussis vaccine Lianet Mascorro MD Work Phone: [facility] Work Phone: 03-27-2002 haemophilus influenz ae type b vaccine, HbOC conjugate Lianet Mascorro MD Work Phone: [facility] Work Phone: 03-27-2002 pneumococcal conjuga te vaccine, 7 valent Lianet Mascorro MD Work Phone: [facility] Work Phone: 03-27-2002 poliovirus vaccine, inactivated Lianet Mascorro MD Work Phone: [facility] Work Phone: 01-21-2002 diphtheria, tetanus toxoids and acellular pertussis vaccine Lianet Mascorro MD Work Phone: [facility] Work Phone: 01-21-2002 haemophilus influenz ae type b vaccine, HbOC conjugate Lianet Mascorro MD Work Phone: [facility] Work Phone: 01-21-2002 poliovirus vaccine, inactivated Lianet Mascorro MD Work Phone: [facility] Work Phone: 2001 hepatitis B vaccine, pediatric or pediatric/adolescent dosage Lianet Mascorro MD Work Phone: [facility] Work Phone: Payers Date Payer Category Payer Medicaid [id number] 2001 Unknown [id number] 1958 Unknown [id number] Social History Date Type Detail Facility Start: 06-03-2022 Tobacco smoking stat us IDIS Never smoked tobacco [facility] History of tobacco use Passive smoker [facility] Start: 06-03-2022 Tobacco use and exposure Smoke less tobacco non-user [facility] Start: 06-03-2022 Alcohol intake Not Asked [facility] Start: 06-03-2022 Tobacco Comment mom smokes inside Cl [facility] Start: 2001 Sex Assigned At Not on file C [facility] Progress note 06-14-2022 Note Date & Type Note Facility 06-14-2022 Note HNO ID: [id number] Author: Merly Henderson Service: ? Author Type: ? Type: Progress Notes Filed: 06/14/2022 2:03 PM Note Text: POPULATION HEALTH NAVIGATION OUTREACH Action/ 1st call, pt was seen outside of Patient Identified by Name and : YES, via phone Outreach Outcome/Action Spoke to patient / parent / legal guardian: Patient declined Did you use a PCP flex slot to schedule this appointment? No Reason for Outreach Care Gap or Scheduling/Wellness visits Payer: Payor: [facility] MEDICAID / Plan: [facility] MEDICAID / Product Type: Medicaid / Care Gap Reviewed:: Specialty Scheduling Reminder: Reminder note to check Health Maintenance for items below Health Maintenance items due: MENINGOCOCCAL B: Consider based on risk(1 of 2 - Risk Bexsero 2-dose series) Never done HEPATITIS C SCREENING Never done HIV SCREENING Never done COVID-19 VACCINE(3 - Booster for Moderna series) due on 06/24/2021 DEPRESSION ASSESSMENT Never done Navigation Signature: Merly Henderson June 14, 2022 2:02 PM [facility] History of Present illness Narrative 06-14-2022 Merly Henderson - 06/14/2022 2:02 PM EST Note Date & Type Note Facility 06-14-2022 History of Presen t illness Narrative POPULATION HEALTH NAVIGATION OUTREACH Action/ call, pt was seen outside of cc Patient Identified by Name and : YES, via phone Outreach Outcome/Action Spoke to patient / parent / legal guardian: Patient declined Did you use a PCP flex slot to schedule this appointment? No Reason for Outreach Care Gap or Scheduling/Wellness visits Payer: Payor: [facility] MEDICAID / [facility] / Product Type: Medicaid / Care Gap Reviewed:: Specialty Scheduling Reminder: Reminder note to check Health Maintenance for items below Health Maintenance items due: MENINGOCOCCAL B: Consider based on risk(1 of 2 - Risk Bexsero 2-dose series) Never done HEPATITIS C SCREENING Never done HIV SCREENING Never done COVID-19 VACCINE(3 - Booster for Moderna series) due on 06/24/2021 DEPRESSION ASSESSMENT Never done Navigation Signature: Merly Henderson June 14, 2022 2:02 PM documented in this encounter [facility] Clinical Note 06-14-2022 Note Date & Type Note Facility 06-14-2022 Note Patient Outreach ([facility]) PAULINE BOWSER ([id number]) 2 M Date Time Provider Department 06/14/22 PCP (HISTORICAL) [facility] During your visit today, we recorded the following information about you: Merly Henderson 06/14/2022 2:03 PM Signed POPULATION HEALTH NAVIGATION OUTREACH Action/ call, pt was seen outside of cc Patient Identified by Name and : YES, via phone Outreach Outcome/Action Spoke to patient / parent / legal guardian: Patient declined Did you use a PCP flex slot to schedule this appointment? No Reason for Outreach Care Gap or Scheduling/Wellness visits Payer: Payor: [facility] MEDICAID / Plan: [facility] MEDICAID / Product Type: Medicaid / Care Gap Reviewed:: Specialty Scheduling Reminder: Reminder note to check Health Maintenance for items below Health Maintenance items due: MENINGOCOCCAL B: Consider based on risk(1 of 2 - Risk Bexsero 2-dose series) Never done HEPATITIS C SCREENING Never done HIV SCREENING Never done COVID-19 VACCINE(3 - Booster for Moderna series) due on 06/24/2021 DEPRESSION ASSESSMENT Never done Navigation Signature: Merly Henderson June 14, 2022 2:02 PM Allergies As of Date: 06/14/2022 (No Known Allergies) Date Reviewed: 06/03/2022 Reviewed by: Noemí Hawkins Ma - Fully Assessed Problem List As Of Date: 06/14/2022 (None) Encounter Status:Closed by MERLY HENDERSON on 06/14/22 [facility] Progress note 06-03-2022 Note Date & Type Note Facility 06-03-2022 Note HNO ID: [id number] Author: Lianet Mascorro MD Service: ? Author Type: Physician Type: Progress Notes Filed: 06/03/2022 1:18 PM Note Text: CC Needs referral to Ortho (Dx: Patellar subluxation of the right knee/) HPI Pauline Bowser is a 21 year old male here for concern about ongoing chronic right knee pain secondary to recurrent patellar subluxation. original injury was in HS- occurred during soccer from a twist motion last subluxation last time 06/2021 last xrays 06/2021 no surgeries -completed 2 rounds of physical therapy. continues to play soccer that at a recreational level. 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 Able to ambulate: Yes Bruising: No Swelling: No Numbness/Tingling: No Radiation of the pain: No Popping of the joint: Used to have popping but it has now been present for several months. Treatment attempted: physical therapy 2 courses FAMILY HISTORY Problem Relation Age of Onset Asthma Maternal Grandmother Diabetes Paternal Grandmother other (alcoholic) Paternal Grandfather Physical exam: BP 120/62 Pulse 70 Temp 36.4 ?C (97.5 ?F) (Temporal) Resp 14 Wt 71.8 kg (158 lb 6 oz) General: Well developed, No acute distress Musculoskeletal: Hip: full ROM and full strength Knee: right side tender upon palpation over medial joint line, full ROM, full strength, Anterior Drawer--, Posterior Drawer--, and Sheba-- Gait: normal gait Neuro: Sensation intact to light touch and knee jerk reflex-+ Skin: Normal color, texture and turgor. No rashes. Last XR Knee - Impression Only XR KNEE GENERAL 4V AP BOTH/PA BOTH/LAT/MERC RIGHT Exam End: 06/29/2021 4:23 PM (Final result) Impression: IMPRESSION: Small joint effusion of the right knee. No acute fracture or subluxation seen. Cigarette Lighter Repairer: ALEX Transcribe Date/Time: Jun 29 2021 4:24P Dictated by : VIVI LINDSEY MD... ASSESSMENT/PLAN: 1. Patellar subluxation, right, subsequent encounter - ICD9: V54.89, 836.3, ICD10: S83.001D (primary diagnosis) - CONSULT TO ORTHOPAEDICS 2. Chronic pain of right knee - ICD9: 719.46, 338.29, ICD10: M25.561, G89.29 - CONSULT TO ORTHOPAEDICS Lianet Mascorro MD I spent a total of 30 minutes on the date of the service which included preparing to see the patient, [id number] patient care, completing clinical documentation, obtaining and/or reviewing separately obtained history, performing a medically appropriate examination, counseling and educating the patient/family/caregiver, and care coordination (not separately reported). [facility] History of Present illness Narrative 06-03-2022 Lianet Mascorro MD - 06/03/2022 8:31 AM EST Note Date & Type Note Facility 06-03-2022 History of Presen t illness Narrative CC Needs referral to Ortho (Dx: Patellar subluxation of the right knee/) HPI Pauline Bowser is a 21 year old male here for concern about ongoing chronic right knee pain secondary to recurrent patellar subluxation. original injury was in HS- occurred during soccer from a twist motion last subluxation last time 06/2021 last xrays 06/2021 no surgeries -completed 2 rounds of physical therapy. continues to play soccer that at a recreational level. 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 Able to ambulate: Yes Bruising: No Swelling: No Numbness/Tingling: No Radiation of the pain: No Popping of the joint: Used to have popping but it has now been present for several months. Treatment attempted: physical therapy 2 courses FAMILY HISTORY Problem Relation Age of Onset Asthma Maternal Grandmother Diabetes Paternal Grandmother other (alcoholic) Paternal Grandfather Physical exam: BP 120/62 Pulse 70 Temp 36.4 C (97.5 F) (Temporal) Resp 14 Wt 71.8 kg (158 lb 6 oz) General: Well developed, No acute distress Musculoskeletal: Hip: full ROM and full strength Knee: right side tender upon palpation over medial joint line, full ROM, full strength, Anterior Drawer--, Posterior Drawer--, and Sheba-- Gait: normal gait Neuro: Sensation intact to light touch and knee jerk reflex-+ Skin: Normal color, texture and turgor. No rashes. Last XR Knee - Impression Only XR KNEE GENERAL 4V AP BOTH/PA BOTH/LAT/MERC RIGHT Exam End: 06/29/2021 4:23 PM (Final result) Impression: IMPRESSION: Small joint effusion of the right knee. No acute fracture or subluxation seen. Cigarette Lighter Repairer: ALEX Transcribe Date/Time: Jun 29 2021 4:24P Dictated by : VIVI LINDSEY MD... ASSESSMENT/PLAN: 1. Patellar subluxation, right, subsequent encounter - ICD9: V54.89, 836.3, ICD10: S83.001D (primary diagnosis) - CONSULT TO ORTHOPAEDICS 2. Chronic pain of right knee - ICD9: 719.46, 338.29, ICD10: M25.561, G89.29 - CONSULT TO ORTHOPAEDICS Lianet Mascorro MD I spent a total of 30 minutes on the date of the service which included preparing to see the patient, [id number] patient care, completing clinical documentation, obtaining and/or reviewing separately obtained history, performing a medically appropriate examination, counseling and educating the patient/family/caregiver, and care coordination (not separately reported). documented in this encounter [facility] Progress note 06-29-2021 Note Date & Type Note Facility 06-29-2021 Note HNO ID: [id number] Author: Alex Jones MD Service: ? Author Type: Physician Type: Progress Notes Filed: 07/01/2021 11:17 AM Note Text: 20-year-old male presents to the office today with complaints of anterior right knee pain. History of subluxing patella. Underwent physical therapy several years ago. 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 Patient states he felt his kneecap give several days ago while playing soccer. He is able to bear weight. No limp currently. He did not develop significant knee swelling after the incident. Additionally the patient states he has had heel pain for the last several months. Question remote trauma. There is no problem list on file for this patient. PAST MEDICAL HISTORY Diagnosis Date - Broken wrist - Routine or ritual circumcision PAST SURGICAL HISTORY Procedure Laterality Date - CIRCUMCISION W/CLAMP/OTH DEV W/BLOCK 2001 ALLERGIES No Known Allergies 06/29/21 1526 Pulse: 60 Resp: 12 Temp: 36.6 ?C (97.8 ?F) TempSrc: Temporal Weight: 71.7 kg (158 lb) Pauline Bowser is a pleasant, well-appearing, well-nourished patient who is of normal affect and mood. Musculoskeletal Exam: Gait and Station WNL. Inspection: No evidence of eythema, warmth, bruising, abrasions, scars, swelling, atrophy or deformity about bilateral lower extremities. . No evidence of surgical incisions.. No evidence of muscular atrophy. Pelvis: stable HIPS Right Left ROM WNL WNL Lower Extremity: KNEE Right Left Effusion None None Skin intact intact ROM 0?-135? 0?-135? Tenderness lateral patellar facet none Stability stable Sheba, posterior drawer and varus/valgus stress at 0? and 30? flexion stable Sheba, posterior drawer and varus/valgus stress at 0? and 30? flexion PATELLA Normal patellar mobility, negative apprehension sign Normal patellar mobility CALF No calf tenderness, negative Ingrid exam and no palpable cords No calf tenderness, negative Ingrid exam and no palpable cords Neurologic Exam: Bilateral lower extremity medial leg and foot(L4), lateral leg and 1st web space(L5), lateral foot(S1) intact with sensation to light touch. Motor strength 5/5 with knee extension (L3), ankle dorsifexion (L4), extensor hallucis longus (L5) and ankle plantar flexion (S1). Range of Motion: Left dorsiflexion/plantarflexion 20 - 50 degrees. Normal eversion, inversion, forefoot, midfoot and hindfoot motion Palpation: No tenderness to palpation about medial malleoulus, lateral malleoulus, anterior joint line, posterior joint line, Achilles tendon, plantar fascia, tarsal tunnel, peroneal teondons, posterior tibial tendon, ATFL, CFL, AITFL, PITFL, proximal fibula, anterior tibial shaft, base of 5th MTT, 1st-5th MTT, 1st-5th phalanges, Lisfrank joint. Positive for tenderness over the heel at the Achilles tendon insertion site but no associated erythema or crepitus Stability: Negative Ingrid's, calf tenderness or palpable cords. I independently reviewed the x-rays and reviewed the radiologist interpretation X-ray of the calcaneus: No fracture X-ray of the right knee, four view: No evidence of fracture or dislocation Impression: (M79.672) Pain of left heel (primary encounter diagnosis) (S83.001A) Patellar subluxation, right, initial encounter Plan: Office Visit on 06/29/21 - XR KNEE GENERAL 4V AP BOTH/PA BOTH/LAT/MERC RIGHT - XR CALCANEUS 2V AXIAL/LAT LEFT Physical therapy: Prescription for therapy faxed to [facility] Education given. Course of illness/condition and rationale for treatment discussed. I spent a total of 30 minutes on the date of the service which included preparing to see the patient, [id number] patient care, completing clinical documentation, obtaining and/or reviewing separately obtained history, performing a medically appropriate examination, counseling and educating the patient/family/caregiver and ordering medications, tests, or procedures. Follow-up If no improvement after physical therapy refer to orthopedic surgery Alex Jones MD [facility] Department of Pediatrics, [facility] Progress note 06-29-2021 Note Date & Type Note Facility 06-29-2021 Note HNO ID: [id number] Author: Michelle Mccann RT(R) Service: Nuclear Medicine Author Type: Technologist Type: Progress Notes Filed: 06/29/2021 4:21 PM Note Text: Radiology Service Progress Note PATIENT NAME: Pauline MURILLON: [id number] DATE OF SERVICE: June 29, 2021 TIME: 4:04 PM PATIENT IDENTITY VERIFICATION COMPLETED USING TWO (2) IDENTIFIERS: Name and Date of confirmed by patient verbally. FALL SCREENING: Has the patient had 2 falls in the last year or 1 fall with injury or currently using an Ambulatory Assistive Device (Walker, Cane, Wheelchair, Crutches, etc.)? No PATIENT GENDER DATA: Male PATIENT RELEVANT IMPLANT DATA REVIEWED: Not Applicable RADIOLOGY DEPARTMENT: General X-ray: Exam(s) Completed: Lower Extremity X-Ray(s): Knee, AP / Lat / Tunne / Merchant Right and Wt. Bearing and Heel, Left PERIPHERAL IV DATA: Not applicable SIGNED BY: RT Marley(R) June 29, 2021 4:04 PM [facility] Evaluation note Note Date & Type Note Facility documented in this encounter [facility] Summary Purpose Family History No Family History Records FoundNo Family History Records Found Advance Directives No Advanced Directives Records FoundNo Advanced Directives Records Found Reason for Referral Specialty Diagnoses / Procedures Referred By Leilani mack Referred To Contact Orthopedics Diagnoses Patellar subluxation, right, subsequent encounter Chronic pain of right knee Procedures CONSULT TO ORTHOPAEDICS OFFICE/OUTPATIENT [facility] 60-74 MINUTES Lianet Mascorro MD [address] [place] [address] Referral ID Status Reason Start Date Expiration Date Visits Requested Visits Authorized [id number] Authorized PCP Requested Referral 06/03/2022 06/03/2023 1 1 Additional Source Comments (unrecognized sect ion and content) No Status Records FoundNo Status Records Found INFORMATION SOURCE (unrecogn ized section and content) DATE CREATED AUTHOR AUTHOR'S ORGANIZ ATION 06/15/2022 [facility] Source Comments (unrecognize d section and content) In the event this informatio n is protected by the Federal Confidentiality of Alcohol and Drug Abuse Patient Records regulations: The Federal rules restrict any use of the information to criminally investigate or prosecute any alcohol or drug abuse patient.[facility] the event this information is protected by the Federal Confidentiality of Alcohol and Drug Abuse Patient Records regulations: The Federal rules restrict any use of the information to criminally investigate or prosecute any alcohol or drug abuse patient.[facility] Reason for Visit (unrecogniz ed section and content) Care Teams (unrecognized sec tion and content) Deck Steward Relationship Specialty Start Date End Date Alex Jones MD [address] [place] [address] PCP - General 03/08/02 FOR RECORDS PERTAINING TO PATIENTS WHO ARE OR HAVE BEEN ENROLLED IN A CHEMICAL DEPENDENCY/SUBSTANCEABUSE PROGRAM, SOME INFORMATION MAY BE OMITTED. This clinical summary was aggregated from multiple sources. Caution should be exercised in using it in the provision of clinical care. This summary normalizes information from multiple sources, and as a consequence, information in this document may materially change the coding, format and clinical context of patient data. In addition, data may be omitted in some cases. CLINICAL DECISIONS SHOULD BE BASED ON THE PRIMARY CLINICAL RECORDS. [employer] [facility]. provides no warranty or guarantee of the accuracy or completeness of information in this document.
[2023-06-11] MEDS: Ondansetron 4 MG/2 ML Vial IV (15:40)
[2023-06-11] MEDS: 0.9% Normal Saline (1000mL) 1,000 ML 1000 ML IV (15:40)
[2023-06-11] MEDS: Morphine 4 MG/ML Syringe IV ×2 (15:40→16:21)
[2023-06-11 15:49] LABS: Absolute Lymphocyte Count 2.42 X10^3/uL (0.83-4.51); Absolute Neutrophil Count 3.4 X10^3/uL (2.0-7.7); Basophil# 0.03 X10^3/uL; Basophil% 0.5 % (0-1); Eosinophil# 0.01 X10^3/uL; Eosinophils% 0.2 % (0-5); Hematocrit 41.2 % (40-54); Hemoglobin 14.2 g/dL (13.0-16.5); Lymphocyte # 2.42 X10^3/ul (0.83-4.51); Lymphocyte % 37.5 % (19-41); Mean Corp Hgb Conc 34.5 g/dL (32-36); Mean Corpuscular Hgb 29.5 pg (27.0-32.0); Mean Corpuscular Volume 85.7 fL (80-94); Mean Platelet Vol. 10.3 fl (6.2-12.0); Monocyte# 0.58 X10^3/uL; NRBC Flagged by Analyzer 0 % (0-5); Neutrophil # 3.39 X10^3/uL (2.7-7.7); Neutrophil % 52.3 % (47-70); Platelet Count 207 K/mm3 (150-450); RBC Distribution Width CV 11.9 % (11.6-14.6); RBC Distribution Width SD 36.8 fl (35.1-43.9); Red Blood Count 4.81 M/mm3 (4.6-6.2); White Blood Count 6.5 K/mm3 (4.4-11.0)
[2023-06-11 15:59] LABS: Anion Gap 9 (5-15); BUN 15 mg/dL (7-18); Calcium,Total 9.6 mg/dL (8.5-10.1); Chloride 107 mmol/L (98-107); Creatinine, Serum 1.15 mg/dL (0.70-1.30); EST Glomerular Filtration Rate 85 mL/min (>60); Est Glom Filt Rate - Afr Amer 103 mL/min (>60); Estimated Creatinine Clearance 104.92 ml/min; Glucose 112 mg/dL (74-106); Sodium Level 141 mmol/L (136-145)
[2023-06-11 17:23] LABS: Mucous, Urine 0 SEEN /hpf (<or=2+); Squamous Epithelial Cells - UA 0 SEEN /hpf (0-5)
[2023-06-11 17:25] LABS: Glucose, Dipstick Normal (Normal); Leukocyte Esterase-Dipstick 25 /ul (Negative); Nitrite-Dipstick Negative (Negative); Occult Blood-Urine 250 /ul (Negative); Protein-Dipstick 30 mg/dl (Negative); Urine Bilirubin Dipstick Negative (Negative); Urine Urobilinogen Normal (Normal)
[2023-06-11 17:27] LABS: Color, Urine Yellow (Yellow); Ketone-Dipstick 150 mg/dl (Negative); Urine Clarity Clear (Clear)
[2023-06-11 17:42] LABS: Bacteria RARE /hpf (None Seen); Red Blood Cells-Urine 50-100 SEEN /hpf (0-5); White Blood Cells 0-5 SEEN /hpf (0-5)
[2023-06-11 18:27] VITALS: BP 129/67; PULSE 98; RESP 14; O2SAT 99
== END 2023-06-11 18:39 | disposition home or self-care (01) ==
PROVIDERS: Emergency Provider Emergency Medicine; PCP Pediatrics; Visit Provider Emergency Medicine
DX: R10.9 Unspecified abdominal pain (principal); R31.9 Hematuria, unspecified; N13.30 Unspecified hydronephrosis; Z87.891 Personal history of nicotine dependence
CPT/HCPCS: 74176; 76870; 80048; 81001; 85025; 93976; 96361; 96374; 96375; 96376; 99283; J7030; J2405

== ENCOUNTER → 2023-06-20 | Outpatient (CLI) | payer MEDICAID, SELFPAY ==
--- NOTE | 2023-06-20 14:53 | RAD_ITS ---
STUDY: X-RAY - LEFT FOOT CLINICAL: Male, 22 years old. Inversion injury TECHNIQUE: 3 view(s) of the foot. COMPARISON: None. FINDINGS: Normal talus, calcaneus, and tarsal bones. Normal visualized subtalar, talonavicular, calcaneocuboid, tarsal and tarsometatarsal articulations. Normal metatarsi. Normal metatarsophalangeal joint of the great toe. Normal tibial and fibular sesamoid bones. Normal interphalangeal joint of the great toe. Normal phalanges of the great toe. Normal second through fifth metatarsophalangeal joints. Normal interphalangeal joints and phalanges of the lesser toes. The soft tissue structures are unremarkable. RAD/Foot min 3 Views IMPRESSION: Normal x-ray examination of the foot. Electronically Signed: Rhys Smith MD at 15:38 EST ,
--- NOTE | 2023-06-20 15:18 | RAD_ITS ---
STUDY: X-RAY - LEFT ANKLE REASON FOR EXAM: Male, 22 years old. Inversion injury TECHNIQUE: 3 view(s) of the ankle. COMPARISON: None. FINDINGS: Normal visualized distal tibia and fibula. Normal medial and lateral malleoli. Normal tibiotalar articulation and ankle mortise. Normal visualized talus and calcaneus. The visualized subtalar, talonavicular, calcaneocuboid and tarsal articulations are normal. Lateral soft tissue swelling. RAD/Ankle min 3 Views IMPRESSION: Lateral soft tissue swelling. Electronically Signed: Rhys Smith MD at 15:37 EST ,
--- OUTSIDE RECORDS SUMMARY | 2023-06-20 18:43 | XMS RPT_ITS | CCD ---
Author Name Unknown Address [address] [place] [address] Organization [facility] Care Team Providers Care Die Press Operator Name Role Phone ALEX JONES Attending Unavailable ALEX JONES Consulting Unavailable ALEX JONES Admitting Unavailable Alex Jones MD Primary Care Provider [phone] ALEX JONES Attending Unavailable ALEX JONES Primary [...] 97.5 [degF] Lianet Mascorro MD Work Phone: [facility] 06-03-2022 08:13-0500 Body weight 71.84 kg Lianet Mascorro MD Work Phone: [facility] 06-03-2022 08:13-0500 Diastolic blood pressure 62 mm[Hg] Lianet Mascorro MD Work Phone: [facility] 06-03-2022 08:13-0500 Heart rate 70 /min Lianet Mascorro MD Work Phone: [facility] 06-03-2022 08:13-0500 Respiratory rate 14 /min Lianet Mascorro MD Work Phone: [facility] 06-03-2022 08:13-0500 Systolic blood pressure 120 mm[Hg] Lianet Mascorro MD Work Phone: [facility] Encounters Encounter Date Encounter Type Care Provider Facility Start: 06-14-2022 ambulatory Pcp (Historical) [facility] Start: 06-03-2022 End: 06-03-2022 ambulatory LIANET MASCORRO Facility:[facility] Start: 06-03-2022 End: 06-03-2022 Patient encounter procedure Lianet Mascorro MD Work Phone: [facility] Plan of Treatment Date Care Activity Detail Author Start: 02-03-2025 Urine microalbumin profile DTA P,TDAP,TD (7 - Td or Tdap) [facility] Start: 05-15-2022 DEPRESSION ASSESSMENT DEPRESSION ASS ESSMENT [facility] Start: 06-24-2021 COVID-19 VACCINE (3 - Booster for Moderna series) COVID-19 VACCINE (3 - Booster for Moderna series) [facility] Start: 11-21-2019 HEPATITIS C SCREENING HEPATITIS C SC STEPHAN [facility] Start: 11-21-2019 HIV SCREENING HIV SCREENING [facility] Start: 11-21-2015 PEDS TO ADULT TRANSI TION ANNUAL ASSESSMENT PEDS TO ADULT TRANSITION ANNUAL ASSESSMENT [facility] Start: 2013 PEDS TO ADULT TRANSI TION INITIAL DISCUSSION PEDS TO ADULT TRANSITION INITIAL DISCUSSION [facility] Start: 11-21-2011 MENINGOCOCCAL B: Con craft demonstrator based on risk (1 of 2 - Risk Bexsero 2-dose series) MENINGOCOCCAL B: Consider based on risk (1 of 2 - Risk Bexsero 2-dose series) [facility] Immunizations Immunization Date Immunization Notes Care Provider Fa cilimitchell 04-16-2019 influenza, injectabl e, quadrivalent, preservative free Lianet Mascorro MD Work Phone: [facility] Work Phone: 03-27-2018 meningococcal polysaccharide (groups A, C, Y and W-135) diphtheria toxoid conjugate vaccine (MCV4P) Lianet Mascorro MD Work Phone: [facility] Work Phone: 03-13-2018 influenza, injectabl e, quadrivalent, contains preservative Lianet Mascorro MD Work Phone: [facility] Work Phone: 03-27-2017 Human Papillomavirus 9-valent vaccine Lianet Mascorro MD Work Phone: [facility] 03-27-2017 influenza, injectabl e, quadrivalent, contains preservative Lianet Mascorro MD Work Phone: [facility] 03-23-2016 Human Papillomavirus 9-valent vaccine Lianet Mascorro MD Work Phone: [facility] 03-02-2016 influenza, injectabl e, quadrivalent, contains preservative Lianet Mascorro MD Work Phone: [facility] 02-03-2015 human papilloma viru s vaccine, quadrivalent Lianet Mascorro MD Work Phone: [facility] 02-03-2015 meningococcal polysaccharide (groups A, C, Y and W-135) diphtheria toxoid conjugate vaccine (MCV4P) Lianet Mascorro MD Work Phone: [facility] 02-03-2015 tetanus toxoid, redu prudence diphtheria toxoid, and acellular pertussis vaccine, adsorbed Lianet Mascorro MD Work Phone: [facility] 03-30-2013 influenza virus vacc ine, live, attenuated, for intranasal use Lianet Mascorro MD Work Phone: [facility] 03-17-2009 novel influenza-H1N1 -09, all formulations Lianet Mascorro MD Work Phone: [facility] Work Phone: 02-04-2008 diphtheria, tetanus toxoids and acellular pertussis vaccine Lianet Mascorro MD Work Phone: [facility] Work Phone: 02-04-2008 measles, mumps and rubella virus vaccine Lianet Mascorro MD Work Phone: [facility] Work Phone: 02-04-2008 poliovirus vaccine, inactivated Lianet Mascorro MD Work Phone: [facility] Work Phone: 02-04-2008 varicella virus vaccine Lianet Mascorro MD Work Phone: [facility] Work Phone: 03-14-2007 influenza virus vacc ine, live, attenuated, for intranasal use Lianet Mascorro MD Work Phone: [facility] Work Phone: 05-03-2005 influenza virus vacc ine, unspecified formulation Lianet Mascorro MD Work Phone: [facility] Work Phone: 05-23-2003 varicella virus vaccine Lianet Mascorro MD Work Phone: [facility] Work Phone: 02-20-2003 diphtheria, tetanus toxoids and acellular pertussis vaccine Lianet Mascorro MD Work Phone: [facility] Work Phone: 02-20-2003 haemophilus influenz ae type b vaccine, HbOC conjugate Lianet Mascorro MD Work Phone: [facility] Work Phone: 02-20-2003 pneumococcal conjuga te vaccine, 7 valent Lianet Mascorro MD Work Phone: [facility] Work Phone: 11-21-2002 measles, mumps and rubella virus vaccine Lianet Mascorro MD Work Phone: [facility] Work Phone: 11-21-2002 pneumococcal conjuga te vaccine, 7 valent Lianet Mascorro MD Work Phone: [facility] Work Phone: 09-04-2002 hepatitis B vaccine, pediatric or pediatric/adolescent dosage Lianet Mascorro MD Work Phone: [facility] Work Phone: 09-04-2002 poliovirus vaccine, inactivated Lianet Mascorro MD Work Phone: [facility] Work Phone: 06-07-2002 diphtheria, tetanus toxoids and acellular pertussis vaccine Lianet Mascorro MD Work Phone: [facility] Work Phone: 06-07-2002 haemophilus influenz ae type b vaccine, HbOC conjugate Lianet Mascorro MD Work Phone: [facility] Work Phone: 06-07-2002 hepatitis B vaccine, pediatric or pediatric/adolescent dosage Lianet Mascorro MD Work Phone: [facility] Work Phone: 06-07-2002 pneumococcal conjuga te vaccine, 7 valent Lianet Mascorro MD Work Phone: [facility] Work Phone: 03-27-2002 diphtheria, tetanus toxoids and acellular pertussis vaccine Lianet Mascorro MD Work Phone: [facility] Work Phone: 03-27-2002 haemophilus influenz ae type b vaccine, HbOC conjugate Lianet Mascorro MD Work Phone: [facility] Work Phone: 03-27-2002 pneumococcal conjuga te vaccine, 7 valent Lianet Mascorro MD Work Phone: [facility] Work Phone: 03-27-2002 poliovirus vaccine, inactivated Lianet Mascorro MD Work Phone: [facility] Work Phone: 01-21-2002 diphtheria, tetanus toxoids and acellular pertussis vaccine Lianet Mascorro MD Work Phone: [facility] Work Phone: 01-21-2002 haemophilus influenz ae type b vaccine, HbOC conjugate Lianet Mascorro MD Work Phone: [facility] Work Phone: 01-21-2002 poliovirus vaccine, inactivated Lianet Mascorro MD Work Phone: [facility] Work Phone: 2001 hepatitis B vaccine, pediatric or pediatric/adolescent dosage Lianet Mascorro MD Work Phone: [facility] Work Phone: Payers Date Payer Category Payer Medicaid [id number] 2001 Unknown [id number] 1959 Unknown [id number] Social History Date Type Detail Facility Start: 06-03-2022 Tobacco smoking stat us NJIS Never smoked tobacco [facility] History of tobacco use Passive smoker [facility] Start: 06-03-2022 Tobacco use and exposure Smoke less tobacco non-user [facility] Start: 06-03-2022 Alcohol intake Not Asked [facility] Start: 06-03-2022 Tobacco Comment mom smokes inside Cl [facility] Start: 2001 Sex Assigned At Not on file C [facility] Progress note 06-14-2022 Note Date & Type Note Facility 06-14-2022 Note HNO ID: [id number] Author: Merly Henderson Service: ? Author Type: [...] Care Gap or Scheduling/Wellness visits Payer: Payor: [facility] MEDICAID / Plan: [facility] MEDICAID / Product Type: Medicaid / [...] Merly Henderson June 14, 2022 2:02 PM [facility] History of Present illness Narrative 06-14-2022 Merly [...] Care Gap or Scheduling/Wellness visits Payer: Payor: [facility] MEDICAID / Plan: [facility] / Product Type: Medicaid / [...] 2022 2:02 PM documented in this encounter [facility] Clinical Note 06-14-2022 Note Date & Type Note Facility 06-14-2022 Note Patient Outreach ([facility]) PAULINE BOWSER ([id number]) 2 M Date Time Provider Department 06/14/22 PCP (HISTORICAL) [facility] During your visit today, we recorded the following information about you: Merly eHnderson 06/14/2022 2:03 PM Signed [facility] Action/ call, pt was seen outside of cc Patient Identified by Name and : YES, via phone Outreach Outcome/Action Spoke to patient / parent / legal guardian: Patient declined Did you use a PCP flex slot to schedule this appointment? No Reason for Outreach Care Gap or Scheduling/Wellness visits Payer: Payor: [facility] MEDICAID / Plan: [facility] MEDICAID / Product Type: Medicaid / [...] Encounter Status:Closed by MERLY HENDERSON on 06/14/22 [facility] Progress note 06-03-2022 Note Date & Type Note Facility 06-03-2022 Note HNO ID: [id number] Author: Lianet Mascorro MD Service: ? Author [...] knee. No acute fracture or subluxation seen. Asphalt Roller Operator: ALEX Transcribe Date/Time: Jun 29 2021 4:24P [...] which included preparing to see the patient, [id number] patient care, completing clinical documentation, obtaining and/or reviewing separately obtained history, performing a medically appropriate examination, counseling and educating the patient/family/caregiver, and care coordination (not separately reported). [facility] History of Present illness Narrative 06-03-2022 Lianet [...] knee. No acute fracture or subluxation seen. Asphalt Roller Operator: ALEX Transcribe Date/Time: Jun 29 2021 4:24P [...] which included preparing to see the patient, [id number] patient care, completing clinical documentation, obtaining and/or reviewing separately obtained history, performing a medically appropriate examination, counseling and educating the patient/family/caregiver, and care coordination (not separately reported). documented in this encounter [facility] Progress note 06-29-2021 Note Date & Type Note Facility 06-29-2021 Note HNO ID: [id number] Author: Alex Jones MD Service: ? Author Type: Physician Type: Progress Notes Filed: 07/01/2021 11:17 AM Note Text: 20-year-old male presents to the office today with complaints of anterior right knee pain. History of subluxing patella. Underwent physical therapy several years ago. 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 Patient states he felt his kneecap [...] Physical therapy: Prescription for therapy faxed to [facility] Education given. Course of illness/condition and rationale for treatment discussed. I spent a total of 30 minutes on the date of the service which included preparing to see the patient, [id number] patient care, completing clinical documentation, obtaining and/or reviewing separately obtained history, performing a medically appropriate examination, counseling and educating the patient/family/caregiver and ordering medications, tests, or procedures. Follow-up If no improvement after physical therapy refer to orthopedic surgery Alex Jones MD [facility] Department of Pediatrics, [facility] Progress note 06-29-2021 Note Date & Type Note Facility 06-29-2021 Note HNO ID: [id number] Author: Michelle Mccann RT(R) Service: Nuclear Medicine Author Type: Technologist Type: Progress Notes Filed: 06/29/2021 4:21 PM Note Text: Radiology Service Progress Note PATIENT NAME: Pauline MURILLON: [id number] DATE OF SERVICE: June 29, 2021 TIME: [...] RT Marley(R) June 29, 2021 4:04 PM [facility] Evaluation note Note Date & Type Note Facility documented in this encounter [facility] Summary Purpose Family History No Family History Records FoundNo Family History Records Found Advance Directives No Advanced Directives Records FoundNo Advanced Directives Records Found Reason for Referral Specialty Diagnoses / Procedures Referred By Leilani mack Referred To Contact Orthopedics Diagnoses Patellar subluxation, right, subsequent encounter Chronic pain of right knee Procedures CONSULT TO ORTHOPAEDICS OFFICE/OUTPATIENT [facility] 60-74 MINUTES Lianet Mascorro MD [address] [place] [address] Referral ID Status Reason Start Date Expiration Date Visits Requested Visits Authorized [id number] Authorized PCP Requested Referral 06/03/2022 06/03/2023 1 1 Additional Source Comments (unrecognized sect ion and content) No Status Records FoundNo Status Records Found INFORMATION SOURCE (unrecogn ized section and content) DATE CREATED AUTHOR AUTHOR'S ORGANIZ ATION 06/15/2022 [facility] Source Comments (unrecognize d section and content) In the event this informatio n is protected by the Federal Confidentiality of Alcohol and Drug Abuse Patient Records regulations: The Federal rules restrict any use of the information to criminally investigate or prosecute any alcohol or drug abuse patient.[facility] the event this information is protected by the Federal Confidentiality of Alcohol and Drug Abuse Patient Records regulations: The Federal rules restrict any use of the information to criminally investigate or prosecute any alcohol or drug abuse patient.[facility] Reason for Visit (unrecogniz ed section and content) Care Teams (unrecognized sec tion and content) Die Press Operator Relationship Specialty Start Date End Date Alex Jones MD [address] [place] [address] PCP - General 03/08/02 FOR RECORDS PERTAINING [...] BE BASED ON THE PRIMARY CLINICAL RECORDS. [employer] [facility]. provides no warranty or guarantee of the accuracy or completeness of information in this document.
== END | disposition home or self-care (01) ==
LOC: MTRAD 14:53
PROVIDERS: PCP Pediatrics; Referring Provider Physician Assistant; Visit Provider Physician Assistant
DX: T14.90XA Injury, unspecified, initial encounter (principal)
CPT/HCPCS: 73610; 73630

== ENCOUNTER 2024-04-14 12:48 | Emergency (ER) | payer MEDICAID, SELFPAY ==
[2024-04-14 12:48] VITALS: BP 135/67; PULSE 60; RESP 16; TEMP 36.3; O2SAT 99; BMI 25.7
--- NOTE | 2024-04-14 13:14 | ED.VIS.LOWEX ---
HPI History of Present Illness Chief Complaint: Lower Extremity Injury Detail of Chief Complaint: Right foot pain due to blunt trauma Informant: patient Occured/Mechanism Mechanism/Context: Yes blunt trauma Comment: Injury while playing soccer last evening Onset/Context/Timing Onset: Yesterday Context: Sudden Onset Timing: Continuous Quality of Pain: Dull and Aching Location: Proximal fifth metatarsal and over the navicular and cuneiform bone mediall Current Severity: Mild Maximum Severity: Moderate Worsened by: Weightbearing Relieved by: NSAID Associated Symptoms Associated Symptoms: Negative for Parasthesia, Weakness or Loss of Funtion Narrative Narrative: Patient is a 23-year-old male. He injured his right foot while playing soccer. He kicked another person's foot. He localizes pain over the proximal fifth metatarsal and over the cuneiform/navicular bone medially. He denies paresthesia, anesthesia medics. He has discomfort with weightbearing. He denies prior injury to the foot. He has sprained his ankle in the past. Recent Illness/Hospitalization: No PFSH PFSH Medical History Sprain of left foot Left ankle sprain Wears contact lenses Non-smoker History of edema History of pain when walking Instability of right patellofemoral joint Allergic dermatitis Home Medications ?Medication ?Instructions ?Recorded ?Last Taken ?Type ibuprofen 600 mg tablet 600 mg PO TID PRN pain #30 tabs 06/20/23 Unknown Rx Allergy/AdvReac Type Severity Reaction Status Date / Time No Known Allergies Allergy Verified 04/14/24 12:51 Surgical History History of wisdom tooth extraction Social History Smoking Status: Former smoker alcohol intake: never what type of physical activity do you participate in: other ROS ROS ED Musculoskeletal Musculoskeletal: Reports other Details: Foot pain, Per HPI narrative ; Denies arthralgias, myalgias or neck pain Integumentary Denies rash Neurologic Neurologic: Denies paresthesias or weakness Hematologic/Lymphatic Hematologic/Lymphatic: Denies easy bruising EXAM Physical Exam Const Vital Signs: 04/14/24 12:48 Temperature 97.4 F L Temperature Source Oral Pulse Rate 60 Respiratory Rate 16 Blood Pressure 135/67 H Blood Pressure Mean 89 Pulse Ox 99 Oxygen Delivery Method Room Air Positive well nourished and well developed General Appearance ED: well developed and NAD HEENT normocephalic and atraumatic Resp normal respiratory effort Cardio regular rate and regular rhythm Extremity normal to inspection and full ROM Extremity Narrative: There is pain palpation over the cuneiform/navicular bone medially and over the proximal fifth metatarsal. There is no bruising noted. There is no soft tissue swelling. There is no tenderness over the lateral medial malleolus. There is no pain ovation of the calcaneus. DP pulses 2+. Neuro oriented x3, CN's II-XII intact bilaterally and no sensory deficits noted Sensorium / Orientation: alert Psych mental status grossly normal Skin no wounds Lesions: no lesions MDM MDM MDM Narrative Medical decision making narrative: X-ray was obtained to assess for soft tissue injury/sprain versus fracture. Radiography Chest X-Ray - ED: Read by ED Physician (Three-view x-ray of the right foot independent reviewed interpreted by me at 1324. It is negative. There is no fracture, subluxation dislocation of any. Tarsal bones and there is no abnormality of the fifth metatarsal bone. There is no soft tissue swelling noted either.) Treatment and Re-Evaluation Narrative: Treatment is ice, elevation NSAIDs. Discharge Plan Triage Chief Complaint: Lower Extremity Injury ED Provider: Aakash Medrano Dx/Rx/DC Orders Clinical Impression: Contusion of left foot, initial encounter Instructions: ED Contusion, Lower Extremity Prescriptions: No Action ibuprofen 600 mg tablet 600 mg PO TID PRN (Reason: pain) Qty: 30 0RF Primary Care Provider: Aldo Weathers Referrals: Aldo Weathers MD [Primary Care Provider] - 1 Week if not improving Activity Restrictions/Additional Instructions: 1. Recommend taking either 4 ibuprofen tablets every 8 hours or 2 Aleve tablets every 12 hours for next 3 to 5 days. 2. Apply ice 6-8 times a day Print Language: Occitan Disposition Disposition: Home, Self Care
--- NOTE | 2024-04-14 13:15 | RAD_ITS ---
EXAM: XR RIGHT FOOT COMPLETE, 3 OR MORE VIEWS CLINICAL INDICATION: Injury/Pain -- PLP third metatarsal and cuneiform medially TECHNIQUE: Frontal, lateral and oblique views of the right foot. COMPARISON: No relevant prior studies available. FINDINGS: BONES/JOINTS: Unremarkable. No acute fracture. No subluxation. Normal alignment. Preservation of the joint space. No sclerotic or destructive changes observed. SOFT TISSUES: Unremarkable. No soft tissue swelling or gas. No radiopaque foreign body. RAD/Foot min 3 Views IMPRESSION: Negative right foot x-rays. Electronically Signed: Ronal Baires MD at 14:09 EST ,
== END 2024-04-14 13:34 | disposition home or self-care (01) ==
PROVIDERS: Emergency Provider Emergency Medicine; PCP Pediatrics; Visit Provider Emergency Medicine
DX: S90.31XA Contusion of right foot, initial encounter (principal); W50.0XXA Accidental hit or strike by another person, initial encounter; Y93.66 Activity, soccer; Z87.891 Personal history of nicotine dependence
CPT/HCPCS: 73630; 99282